=== PATIENT | female | born 1995 | race Two or more races ===

== ENCOUNTER → 2024-02-22 08:06 | Outpatient (CLI) | payer OTHER | END | disposition home or self-care (01) | LOC: PRENATAL 08:06 | PROVIDERS: ATTEND Obstetrics & Gynecology Maternal & Fetal Medicine | DX: O44.00 Complete placenta previa NOS or without hemorrhage, unspecified trimester (principal); O36.8199 Decreased fetal movements, unspecified trimester, other fetus; O10.019 Pre-existing essential hypertension complicating pregnancy, unspecified trimester; O24.419 Gestational diabetes mellitus in pregnancy, unspecified control; O99.019 Anemia complicating pregnancy, unspecified trimester; Z3A.32 32 weeks gestation of pregnancy ==

== ENCOUNTER → 2024-03-20 | Outpatient (CLI) | payer OTHER | END | disposition home or self-care (01) | LOC: PRENATAL 08:08 | PROVIDERS: ATTEND Obstetrics & Gynecology Maternal & Fetal Medicine | DX: O26.849 Uterine size-date discrepancy, unspecified trimester (principal); O36.8199 Decreased fetal movements, unspecified trimester, other fetus; O10.019 Pre-existing essential hypertension complicating pregnancy, unspecified trimester; O24.419 Gestational diabetes mellitus in pregnancy, unspecified control; O32.9XX0 Maternal care for malpresentation of fetus, unspecified, not applicable or unspecified; Z3A.36 36 weeks gestation of pregnancy ==